=== PATIENT | male | born 1960 | race Caucasian/White ===

== ENCOUNTER 2016-07-29 09:53 | Inpatient (IN) | payer MEDICARE, MEDICAID ==
[~2016-07-29] VITALS: Ht 177.8 cm; Wt 83.7 kg
[2016-07-29 12:26] VITALS: BP 124/90
[2016-07-29] MEDS ORDERED: ZOLPIDEM TARTRATE 10 MG TABLET PO PRN (12:45)
[2016-07-29] MEDS ORDERED: HALOPERIDOL 5 MG TABLET PO PRN (12:45)
[2016-07-29] MEDS ORDERED: LORazepam 2 MG TABLET PO PRN (12:45)
[2016-07-29 16:20] VITALS: BP 119/79
[2016-07-30 01:39] VITALS: BP 134/76
[2016-07-30 08:00] VITALS: BP 129/74
[2016-07-30] MEDS ORDERED: NICOTINE 21 MG/24 HOUR PATCH TD SCH (09:00)
[2016-07-30 16:14] VITALS: BP 139/95
[2016-07-30] MEDS: DIVALPROEX SODIUM 500 MG ER TABLET PO SCH (20:22)
[2016-07-30] MEDS: OLANZapine 10 MG TABLET PO SCH (20:22)
[2016-07-31 00:26] VITALS: BP 136/88
[2016-07-31] MEDS ORDERED: HALOPERIDOL LACTATE 5 MG/ML VIAL IM ONE (02:00)
[2016-07-31] MEDS ORDERED: DiphenhydrAMINE HCL 50 MG/ML VIAL IM ONE (02:00)
[2016-07-31] MEDS ORDERED: LORazepam 2 MG/ML VIAL IM ONE (02:00)
[2016-07-31] MEDS: MUPIROCIN CALCIUM 2% 22 GM OINTMENT NASAL SCH ×2 (14:00→17:00)
[2016-07-31] MEDS: OLANZapine 10 MG TABLET PO SCH (21:00)
[2016-07-31] MEDS: DIVALPROEX SODIUM 500 MG ER TABLET PO SCH (21:00)
[2016-08-01 08:23] VITALS: BP 132/80
[2016-08-01] MEDS: MUPIROCIN CALCIUM 2% 22 GM OINTMENT NASAL SCH ×2 (09:00→16:06)
[2016-08-01 17:07] VITALS: BP 119/95
[2016-08-01] MEDS: OLANZapine 10 MG TABLET PO SCH (20:41)
[2016-08-01] MEDS: DIVALPROEX SODIUM 500 MG ER TABLET PO SCH (20:41)
[2016-08-02 08:00] VITALS: BP 124/93
[2016-08-02] MEDS: MUPIROCIN CALCIUM 2% 22 GM OINTMENT NASAL SCH ×2 (09:00→17:00)
[2016-08-02 18:06] VITALS: BP 130/88
[2016-08-02] MEDS: OLANZapine 10 MG TABLET PO SCH (20:22)
[2016-08-02] MEDS: DIVALPROEX SODIUM 500 MG ER TABLET PO SCH (20:22)
[2016-08-03] MEDS: MUPIROCIN CALCIUM 2% 22 GM OINTMENT NASAL SCH ×2 (09:00→16:19)
[2016-08-03 18:44] VITALS: BP 134/93
[2016-08-03] MEDS: DIVALPROEX SODIUM 500 MG ER TABLET PO SCH (20:36)
[2016-08-03] MEDS: OLANZapine 10 MG TABLET PO SCH (20:36)
[2016-08-04] MEDS: MENTHOL/CAMPHOR/DIMETH/PHENOL 10 GM OINTMENT TP PRN ×2 (05:58→14:48)
[2016-08-04] MEDS: MUPIROCIN CALCIUM 2% 22 GM OINTMENT NASAL SCH (14:50)
[2016-08-04] MEDS: DIVALPROEX SODIUM 500 MG ER TABLET PO SCH (20:27)
[2016-08-04] MEDS: OLANZapine 10 MG TABLET PO SCH (20:27)
[2016-08-05 16:07] VITALS: BP 133/82
[2016-08-05] MEDS: OLANZapine 10 MG TABLET PO SCH (21:00)
[2016-08-05] MEDS: DIVALPROEX SODIUM 500 MG ER TABLET PO SCH (21:00)
[2016-08-06] MEDS: OLANZapine 10 MG TABLET PO SCH (20:22)
[2016-08-06] MEDS: DIVALPROEX SODIUM 500 MG ER TABLET PO SCH (20:22)
[2016-08-07] MEDS ORDERED: DIVA500T52 PO (14:36)
[2016-08-07] MEDS ORDERED: OLAN10TA3 PO (14:36)
== END 2016-08-07 15:00 | disposition home or self-care (01) | DRG 885 ==
LOC: B3A 12:41 → 3EC 07-31 11:46
DX: F20.0 Paranoid schizophrenia (principal); L55.9 Sunburn, unspecified; F15.90 Other stimulant use, unspecified, uncomplicated; L30.8 Other specified dermatitis; J44.9 Chronic obstructive pulmonary disease, unspecified; F17.200 Nicotine dependence, unspecified, uncomplicated; Z53.29 Procedure and treatment not carried out because of patient's decision for other reasons; Z71.89 Other specified counseling; Z91.19 Patient's noncompliance with other medical treatment and regimen; Z22.322 Carrier or suspected carrier of Methicillin resistant Staphylococcus aureus; Z79.899 Other long term (current) drug therapy
CPT/HCPCS: 87081; J1200; J1630; J2060

== ENCOUNTER 2019-08-16 17:44 | Emergency (ER) | payer MEDICAID, MEDICARE ==
[~2019-08-16] VITALS: Ht 177.8 cm; Wt 88.6 kg
[~2019-08-16 17:44] MED LIST: BACI500P3 TP; CLIN150C9 PO; MULT-1239 PO; RISP2 PO
[2019-08-16 18:01] VITALS: BP 136/100
== END 2019-08-16 18:27 | disposition left against medical advice (07) ==
LOC: EMS 17:44
DX: F20.9 Schizophrenia, unspecified (principal)